=== PATIENT | male | born 1965 | race Caucasian/White ===

== ENCOUNTER 2017-02-14 19:37 | Inpatient (IN) | payer OTHER ==
[~2017-02-14] VITALS: Ht 188 cm; Wt 126.2 kg
[~2017-02-14 19:37] MED LIST: CLEOCIN300 MG PO; FLOMAX0.4 MG PO; HYDROCODON-ACE1 EAC7 PO; MOTRIN800 MG PO; NORCO 5/3251 TABLET PO; OMEPRAZOLE20 MG PO; PRILOSEC OTC20 MG PO; RISPERDAL25 MG/2 ML IM; TORADOL10 MG PO; ZOFRAN4 MG PO
[2017-02-14 21:52] LABS: HEMATOCRIT 43.2 % (38.0-50.0); MCH 30.8 PG (29.0-34.0); MCHC 35.2 G/DL (30.0-36.0); MCV 87.6 FL (86-99); MEAN PLAT.VOLUME 9.8 uM^3 (9.0-12.4); RBC DIS.WIDTH-CV 12.6 % (11.8-14.6); RBC DIS.WIDTH-SD 40.9 % (39-53); RED BLOOD COUNT 4.93 M/uL (4.00-5.50); WHITE BLOOD COUNT 8.2 K/uL (4.1-10.2)
[2017-02-14 21:56] LABS: PLATELET COUNT 194 K/uL (156-360)
[2017-02-14 22:03] LABS: CHLORIDE 99 mEq/L (99-109); POTASSIUM 3.6 mEq/L (3.7-5.4); SODIUM 136 mEq/L (136-147)
[2017-02-14 22:05] LABS: GLUCOSE 121 mg/dL (70-99)
[2017-02-14 22:07] LABS: ANION GAP 12 MEQ/L (2-14)
[2017-02-14 22:09] LABS: ALKALINE PHOSPHATASE 48 IU/L (3-129); GFR ESTIMATE (CALCULATED) > 59 mL/min/
[2017-02-14 22:10] LABS: UREA NITROGEN (BUN) 12 mg/dL (9-23)
[2017-02-15 08:55] VITALS: BP 138/95
[2017-02-15] MEDS ORDERED: ENDOCET 5-3251 EACH PO ×2 (12:31→14:17)
[2017-02-15] MEDS ORDERED: DOXYCYCLINE HY100 MG PO ×2 (12:31→14:14)
[2017-02-15] MEDS ORDERED: KETOROLAC TROME10 MG PO (12:50)
[2017-02-15] MEDS ORDERED: CYCLOBENZAPRINE5 MG PO (12:51)
[2017-02-15] MEDS ORDERED: FLOMAX0.4 MG PO (12:51)
[2017-02-15] MEDS ORDERED: ADVIL MIGRAINE200 MG PO (12:52)
[2017-02-16 09:13] LABS: LYME DISEASE SEROLOGY SCREEN NEGATIVE (NEGATIVE)
== END 2017-02-15 14:52 | disposition home or self-care (01) | DRG 195 ==
LOC: EME 19:37 → EDOF 02-15 04:11 → ENRESERV 02-15 04:15 → 5EAST 02-15 05:24
PROVIDERS: Physician Assistant
PROC: 00JU3ZZ Inspection of Spinal Canal, Percutaneous Approach (ICD-10-PCS; principal; 2017-02-15)
DX: J18.9 Pneumonia, unspecified organism (principal); N40.0 Benign prostatic hyperplasia without lower urinary tract symptoms; E66.9 Obesity, unspecified; Z68.35 Body mass index [BMI] 35.0-35.9, adult; Z87.442 Personal history of urinary calculi
CPT/HCPCS: 36415; 70450; 80053; 85025; 85027; 85651; 86618; 99281; 99285; J0456; J0696; J1100; J2765; J3010; J3370; J7030

== ENCOUNTER 2017-02-19 08:39 | Emergency (ER) | payer OTHER ==
[~2017-02-19] VITALS: Ht 188 cm; Wt 128.6 kg
[~2017-02-19 08:39] MED LIST changes: +ADVIL MIGRAINE200 MG PO; +CYCLOBENZAPRINE5 MG PO; +DOXYCYCLINE HY100 MG PO; +ENDOCET 5-3251 EACH PO; +KETOROLAC TROME10 MG PO
[2017-02-19 09:22] LABS: HEMATOCRIT 40.5 % (38.0-50.0); HEMOGLOBIN 14.3 G/DL (12.5-16.6); MCH 30.8 PG (29.0-34.0); MCHC 35.3 G/DL (30.0-36.0); MCV 87.1 FL (86-99); PLATELET COUNT 200 K/uL (156-360); RBC DIS.WIDTH-CV 12.7 % (11.8-14.6); RBC DIS.WIDTH-SD 40.2 % (39-53); RED BLOOD COUNT 4.65 M/uL (4.00-5.50); WHITE BLOOD COUNT 6.4 K/uL (4.1-10.2)
[2017-02-19 09:23] LABS: APPEARANCE SL.HAZY ((CLEAR)); BILIRUBIN NEGATIVE; BLOOD LARGE; COLOR YELLOW ((YELLOW)); GLUCOSE (STRIP) NEGATIVE; KETONES NEGATIVE; LEUKOCYTES NEGATIVE; NITRITE NEGATIVE; PROTEIN (STRIP) 30; SPECIFIC GRAVITY 1.019 (1.000-1.030); UROBILINOGEN 0.2 MG/DL (0.2-1.0)
[2017-02-19 09:28] LABS: BACTERIA RARE /HPF; EPITHELIAL CELLS RARE /HPF; MUCUS TRACE /LPF; RED BLOOD CELLS TNTC /HPF (0-5); UCUL ADDED? YES; WHITE BLOOD CELLS 0-5 /HPF (0-5)
[2017-02-19 09:32] LABS: CHLORIDE 105 mEq/L (99-109); SODIUM 139 mEq/L (136-147)
[2017-02-19 09:35] LABS: GLUCOSE 117 mg/dL (70-99); TOTAL PROTEIN 6.7 g/dL (6.4-8.3)
[2017-02-19 09:38] LABS: ALKALINE PHOSPHATASE 49 IU/L (3-129); GFR ESTIMATE (CALCULATED) > 59 mL/min/
[2017-02-19 09:39] LABS: UREA NITROGEN (BUN) 18 mg/dL (9-23)
[2017-02-19 09:40] LABS: AST (GOT) 17 IU/L (2-34)
[2017-02-19 09:41] LABS: ALT (GPT) 29 IU/L (3-49); TOTAL BILIRUBIN 0.5 mg/dL (0.0-1.0)
[2017-02-19] MEDS ORDERED: VICODIN 5-3001 EACH PO (10:45)
[2017-02-19] MEDS ORDERED: FLOMAX0.4 MG PO (10:45)
[2017-02-19] MEDS ORDERED: NAPROSYN500 MG PO (10:45)
[2017-02-19] MEDS ORDERED: NORCO 5/3251 TABLET PO (10:49)
[2017-02-19 11:24] VITALS: BP 146/100
== END 2017-02-19 11:26 | disposition home or self-care (01) ==
LOC: EME 08:39
DX: N20.0 Calculus of kidney (principal); Z87.442 Personal history of urinary calculi
CPT/HCPCS: 80053; 81003; 85027; 87086; 99281; 99284; J2270

== ENCOUNTER 2017-07-07 05:47 | Emergency (ER) | payer OTHER ==
[~2017-07-07] VITALS: Ht 188 cm; Wt 132.1 kg
[~2017-07-07 05:47] MED LIST changes: +NAPROSYN500 MG PO; +VICODIN 5-3001 EACH PO
[2017-07-07 06:19] LABS: HEMATOCRIT 40.9 % (38.0-50.0); HEMOGLOBIN 14.6 G/DL (12.5-16.6); MCH 31.5 PG (29.0-34.0); MCHC 35.7 G/DL (30.0-36.0); MCV 88.1 FL (86-99); PLATELET COUNT 210 K/uL (156-360); RBC DIS.WIDTH-CV 13.1 % (11.8-14.6); RBC DIS.WIDTH-SD 42.2 % (39-53); RED BLOOD COUNT 4.64 M/uL (4.00-5.50); WHITE BLOOD COUNT 6.2 K/uL (4.1-10.2)
[2017-07-07 06:32] LABS: CHLORIDE 108 mEq/L (99-109); POTASSIUM 3.7 mEq/L (3.7-5.4); SODIUM 139 mEq/L (136-147)
[2017-07-07 06:33] LABS: GLUCOSE 122 mg/dL (70-99)
[2017-07-07 06:37] LABS: CREATININE 0.9 mg/dL (0.6-1.3); GFR ESTIMATE (CALCULATED) > 59 mL/min/ (58.99-99999)
[2017-07-07 06:38] LABS: UREA NITROGEN (BUN) 19 mg/dL (9-23)
[2017-07-07 07:26] LABS: TROP-I INTERPRETATION NEGATIVE; TROPONIN-I < 0.01 ng/mL (0.0-0.30)
[2017-07-07 08:27] VITALS: BP 145/92
== END 2017-07-07 08:29 | disposition home or self-care (01) ==
LOC: EME 05:47
PROVIDERS: Emergency Medicine
DX: J06.9 Acute upper respiratory infection, unspecified (principal); R42 Dizziness and giddiness; Z87.442 Personal history of urinary calculi
CPT/HCPCS: 71046; 80048; 84484; 85027; 93005; 99281; 99285